=== PATIENT | male | born 1945 | race Caucasian/White ===

== ENCOUNTER 2016-04-25 10:00 | Inpatient (IN) | payer MEDICARE, OTHER ==
[~2016-04-25] VITALS: Ht 188 cm; Wt 149.4 kg
--- NOTE | ~2016-04-25 | HP ---
PATIENT'S NAME: JOHNSON NIETO [facility] AGE: 71 Y [address] ROOM: [place] [address] LOCATION: [facility] ADMIT DATE: 05/02/2016 History & Physical DISCHARGE DATE: FAMILY PHYSICIAN: Donavan Plasencia MD ATTENDING PHYSICIAN: Nahum Garcia DATE OF SERVICE: CHIEF COMPLAINT: Back pain, lumbar. 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 Nahum Garcia, spine surgeon, for ongoing chronic low back pain. The patient has undergone successful laminectomy at L4 and TLIF screws at L4-L5, operation per Dr. Garcia, and I am asked to follow him postop for pain management and medical illness. When I see him, he is sitting in a chair, resting quietly. The patient states he has had no nausea or vomiting since surgery, and he is tolerating diet well. MEDICATIONS: 1. Budeprion XL 300 mg 1 every 24 hours. 2. Clonazepam 0.5 mg a day. 3. Lexapro 20 mg a day. 4. Trazodone 100 mg a day. 5. Synthroid 0.075 mg a day. 6. Tramadol 50 mg as needed. ALLERGIES TO MEDICATIONS: No known drug allergies. IMMUNIZATIONS: Appear to be up-to-date. SOCIAL HISTORY: Does not smoke. FAMILY HISTORY: Negative for problems with bleeding disorder or reaction anesthetic. PREVIOUS OPERATIONS: Bilateral cataracts removed, skin cancer removed, bilateral shoulder arthroscopy, previous left knee arthroscopy, prostatectomy, carpal tunnel PATIENT'S NAME: JOHNSON NIETO [facility] AGE: 71 Y [address] ROOM: [place] [address] LOCATION: [facility] ADMIT DATE: 05/02/2016 History & Physical DISCHARGE DATE: FAMILY PHYSICIAN: Donavan Plasencia MD ATTENDING PHYSICIAN: Nahum Garcia release bilateral, and left elbow ulnar nerve transposition. REVIEW OF SYSTEMS: Positive for hypothyroidism, gastroesophageal reflux, prostate cancer, obstructive sleep apnea, generalized osteoarthritis, posttraumatic stress disorder, and exogenous obesity and hypothyroidism, on replacement. PHYSICAL EXAMINATION: VITAL SIGNS: Per nurse's notes. He is alert, sitting in a chair. Hard of hearing. HEENT: Benign. His nose is clear. TMs normal. Posterior pharynx clear. NECK: Unremarkable. LUNGS: Clear. HEART: Shows no murmur, gallop, or rub. ABDOMEN: Soft without point tenderness or mass. He is obese. PELVIC AND RECTAL: Not done. EXTREMITIES: Unremarkable. I did not check the incision on his back. ASSESSMENT: 1. Chronic low back pain. 2. Status post surgery at L4, described per Dr. Garcia. 3. Exogenous obesity. 4. Posttraumatic stress disorder. 5. Generalized osteoarthritis. 6. Obstructive sleep apnea. 7. History of prostate cancer. 8. Hypothyroid replacement. 9. Gastroesophageal reflux. 10. History of cancer of the face. 11. Status post bilateral cataract excision. 12. Status post bilateral shoulder arthroscopies. 13. Status post left knee arthroscopy. 14. Status post prostatectomy. 15. Status post bilateral carpal tunnel release. 16. Status post elbow ulnar nerve transposition. PLAN: Follow daily. STEPHANIE TAPIA MD PLANT OPERATOR/SHIFT SUPERVISOR/modl PATIENT'S NAME: JOHNSON NIETO [facility] AGE: 71 Y [address] ROOM: [place] [address] LOCATION: [facility] ADMIT DATE: 05/02/2016 History & Physical DISCHARGE DATE: FAMILY PHYSICIAN: Donavan Plasencia MD ATTENDING PHYSICIAN: Nahum Garcia /[id number] D: T: 741 HISTORY & PHYSICAL
--- NOTE | ~2016-04-25 | OR ---
PATIENT'S NAME: JOHNSON NIETO [facility] AGE: 71 Y [address] ROOM: [place] [address] LOCATION: [facility] ADMIT DATE: 05/02/2016 OR/Procedure Report DISCHARGE DATE: FAMILY PHYSICIAN: Donavan Plasencia MD ATTENDING PHYSICIAN: Nahum Garcia SURGEON: Nahum Garcia MD DIESEL DINKEY ENGINEER: DATE OF PROCEDURE: 05/02/2016 PREOPERATIVE DIAGNOSES: 1. Lumbar degenerative disk disease. 2. Lumbar spondylolisthesis. 3. Lumbar stenosis. 4. Lumbar neurogenic claudication. 5. Low back pain. 6. Obesity. POSTOPERATIVE DIAGNOSES: 1. Lumbar degenerative disk disease. 2. Lumbar spondylolisthesis. 3. Lumbar stenosis. 4. Lumbar neurogenic claudication. 5. Low back pain. 6. Obesity. PROCEDURES PERFORMED: 1. Lumbar laminectomy of L4 with decompression of the L4-5 interspace. 2. Lumbar fusion of L4-5 interspace including transforaminal lumbar interbody fusion plus posterolateral fusion of L4-5. 3. Application of spinal prosthetic cage, L4-5 interspace. 4. Application of pedicle screw instrumentation, nonsegmental, L4-5, bilateral. NATIONAL PARK RANGER: CONCETTA Tomas ANESTHESIA: General. ESTIMATED BLOOD LOSS: 400 mL. COMPLICATIONS: None. SPECIMENS: None. FINDINGS: Severe degenerative disease with severe recess stenosis at L4-5 with marked facet hypertrophy. PATIENT'S NAME: JOHNSON NIETO [facility] AGE: 71 Y [address] ROOM: [place] [address] LOCATION: [facility] ADMIT DATE: 05/02/2016 OR/Procedure Report DISCHARGE DATE: FAMILY PHYSICIAN: Donavan Plasencia MD ATTENDING PHYSICIAN: Nahum Garcia INSTRUMENTATION USED: Globus [place] pedicle screws and caliber cage. OPERATIVE INDICATIONS: The patient is a 71-year-old male whom I have followed for symptomatic lumbar degenerative disk disease with spondylolisthesis, spinal stenosis, and neurogenic claudication. He had failed conservative treatment. He was offered surgery in the form of a lumbar decompressive operation with stabilization of his instability. After details, risks, benefits, and options were explained, he freely consented to surgery. OPERATIVE NARRATIVE: After the patient was correctly identified and operative site initialed, he was taken back to the operating room and placed in the supine position. After general anesthesia was induced, he was placed in the prone position with all bony prominences well padded and protected. The back was prepped and draped in the usual sterile fashion. A time-out was taken to verify the patient and the procedure. He received IV antibiotics prior to surgery. 10 mL of 0.25% Marcaine with epinephrine was injected in line with the incision. A 10 blade was used to make a midline incision over the operative levels. Dissection was taken down through the skin and subcutaneous tissue. The fascia was opened in the midline. Subperiosteal dissection was performed to expose the posterior elements. Kerrison was placed on the lamina and verified at the L4-5 level. Transverse processes were exposed at L4 and L5. Self-retaining retractors were placed in the wound. Leksell was used to remove the spinous process and thin the lamina at L4. A combination of high- speed bur under irrigation, Kerrison, and a Leksell rongeur were used to complete the laminectomy. The facets were resected bilaterally. The right- sided facet was completely resected for decompression of the severe recess stenosis. It was also for access to the disk space for the interbody fusion. After decompression was complete, gentle medial retraction on the dura allowed identification of the disk space on the right side. The disk was incised and debrided using pituitaries, curettes, and disk space clayton. After the disk space was adequately prepared, it was packed with BMP and local harvested bone graft. The cage selected was packed with the same bone graft material and impacted in position. It was expanded to its torque-limiting height. The O- arm reference clamp was attached to the L3 spinous process, and the O-arm was brought in for navigation scan. Under stealth navigation, pedicles were localized at L4 and L5. Pedicle screws were placed, and all had excellent purchase. Confirmation of the pedicle screw placement was verified on the scan. Rods were reduced to the screws. Set caps placed and tightened to the appropriate torque. A high-speed bur was used to decorticate the left-sided transverse processes of L4 and L5, and the remaining bone graft and bone graft superintendent nonselling was packed in the lateral gutter for the posterolateral fusion. The wound was irrigated and dried. There was no bleeding. DuraSeal was injected over the disk space to isolate from the spinal canal. 1 g of vancomycin powder was divided between the superficial and deep tissues. The fascia was PATIENT'S NAME: JOHNSON NIETO [facility] AGE: 71 Y [address] ROOM: [address] [address] LOCATION: [facility] ADMIT DATE: 05/02/2016 OR/Procedure Report DISCHARGE DATE: FAMILY PHYSICIAN: Donavan Plasencia MD ATTENDING PHYSICIAN: Nahum Garcia closed with interrupted #1 Vicryl suture, 0 Vicryl on the subcutaneous tissue, and juan on the skin. Sterile dressing was applied, and the patient was awakened from anesthesia and taken to the recovery room in stable condition. A instructor adjunct surgical technician was necessary during this procedure for evacuation of blood during decompression, assistance with placement of the TLIF cage for fusion, and placement of the pedicle screw fixation for stabilization. The patient's morbid obesity made surgical exposure and performance of his fusion operation markedly more difficult than a standard patient. MD MOE PARTIDA/marthal /[id number] d: 05/02/16 1759 t: 05/03/16 1420, OPERATIVE SUMMARY
--- NOTE | ~2016-04-25 | PN ---
PATIENT'S NAME: JOHNSON NIETO [facility] AGE: 71 Y [address] ROOM: [id number] [place], [place] [address] [place] [facility] [place] DATE: 05/02/2016 [facility] Progress Notes DISCHARGE DATE: FAMILY PHYSICIAN: Donavan Plasencia MD ATTENDING PHYSICIAN: Nahum Garcia DATE OF SERVICE: 05/07/2016 CLINICAL UPDATE: The patient has had a lingering low back pain, anxiety, stress, and posttraumatic symptoms overnight. He is followed by the orthopedic surgeon, Dr. Garcia, who did his operation of his back. The attempt today will be to try to get him out to a local senior living closer to home where he would be near his family. From the spine workup and urologic workup, we found no other cause for his back pain including kidney stone. His urine culture came back negative. I had seen him today. He says he is "scared." He thinks this is because of the pain. PHYSICAL EXAMINATION: VITAL SIGNS: Noted. HEENT: Benign. He is hard of hearing. NECK: Unremarkable. LUNGS: Clear. ABDOMEN: Soft, he is neurologically intact. IMPRESSION: 1. Low back pain. 2. Status post lumbar surgery. 3. Posttraumatic stress disorder. 4. No rodney sign of renal lithiasis or urinary tract infection. 5. Exogenous obesity. PLAN: Per the orthopedic surgeons and urologist. Suspect he goes to a local senior living today or tomorrow. STEPHANIE TAPIA MD MAGAZINE HAND/modl PATIENT'S NAME: JOHNSON NIETO [facility] AGE: 71 Y [address] ROOM: [address] [place], [place] [address] [place] [facility] [place]: 05/02/2016 [facility] Progress Notes DISCHARGE DATE: FAMILY PHYSICIAN: Donavan Plasencia MD ATTENDING PHYSICIAN: Nahum Garcia /[id number] d: 05/07/16828 t: 05/14/16 1832, PROGRESS NOTES
--- NOTE | ~2016-04-25 | DS ---
PATIENT'S NAME: JOHNSON NIETO [facility] AGE: 71 Y [address] ROOM: [address] [address] LOCATION: [facility] ADMIT DATE: 05/02/2016 Discharge Summary DISCHARGE DATE: 05/08/2016 FAMILY PHYSICIAN: Donavan Plasencia MD ATTENDING PHYSICIAN: Ba Garcia ADMIT DIAGNOSES: 1. Lumbar spinal stenosis. 2. Lumbar spondylolisthesis. 3. Lumbar degenerative disk disease. 4. Lumbar radiculopathy. 5. Sleep apnea. 6. Depression. DISCHARGE DIAGNOSES: 1. Lumbar spinal stenosis. 2. Lumbar spondylolisthesis. 3. Lumbar degenerative disk disease. 4. Lumbar radiculopathy. 5. Sleep apnea. 6. Depression. 7. Urinary retention. 8. Postoperative delirium. PROCEDURE PERFORMED: Lumbar laminectomy and fusion at L4-5 with TLIF, cage, and posterior pedicle screw instrumentation with posterolateral fusion. HISTORY OF PRESENT ILLNESS: Mr. Nieto is a 71-year-old male who has been followed for low back pain, lumbar radiculopathy, and has failed conservative treatment measures. At which point, surgical treatment options were discussed with the patient. He consented to proceed with surgery. He underwent the above-stated procedure on 05/02/2016. HOSPITAL COURSE: The patient was admitted through same-day surgery underwent lumbar spine operation, was recovered in PACU, and transferred to [address] [place] [address] in stable condition. On postop day 1, the patient's Zambrano catheter was removed, he was up ambulating with one person assist. He was on IV pain medication and was transitioned to oral pain medication. Hemoglobin and hematocrit were stable. He did not require blood transfusion. On postop day 2, the patient's pain escalated significantly. He was placed back on IV pain medication. He underwent ultrasound of his abdomen, which was negative. X-rays of the lumbar spine were negative and stable. His Zambrano catheter was replaced as he had urinary retention. He was not mobilizing. From this day forward, he slowly started to gradually show improvement, but still by the time of discharge, he was at least a one person assist. He was eventually transitioned to oral pain PATIENT'S NAME: JOHNSON NIETO [facility] AGE: 71 Y [address] ROOM: [facility] [place], [place] [address] LOCATION: [facility] [place] ADMIT DATE: 05/02/2016 Discharge Summary DISCHARGE DATE: 05/08/2016 FAMILY PHYSICIAN: Donavan Plasencia MD ATTENDING PHYSICIAN: Ba Garcia medication with fairly adequate pain control. He was having some symptoms consistent with postop delirium, which were gradually improving. His Zambrano catheter was eventually removed on postop day 5 and was voiding without difficulty. He was passing gas. He was afebrile and vital signs were stable throughout his hospital course. He was eventually then transferred to a senior living facility in [facility]. DISCHARGE COURSE: The patient is discharged to a senior living facility on 05/08/2016. He is in stable condition. He was one person assist. He is discharged with oral pain medication and muscle relaxer. He was reminded of postoperative restrictions, use of his brace, and care for his incision and dressing. He is to follow up with Dr. Garcia in approximately 10 days. CONCETTA ALFREDO FOR BA GARCIA MD JTF/modl /[id number] d: 05/16/16 0752 t: 05/24/16 1143, DISCHARGE SUMMARY
[2016-04-25] MEDS ORDERED: LEVOTHROID(SYN75 MCG PO (10:14)
[2016-04-25] MEDS ORDERED: KLONOPIN0.5 MG PO (10:15)
[2016-04-25] MEDS ORDERED: WELLBUTRIN XL300 M1 PO (10:15)
[2016-04-25] MEDS ORDERED: DESYREL100 MG PO (10:15)
[2016-04-25] MEDS ORDERED: LEXAPRO20 MG PO (10:15)
[2016-04-25] MEDS ORDERED: ZYLOPRIM100 MG PO (10:16)
[2016-04-25] MEDS ORDERED: CPAP INH (10:17)
[2016-04-25] MEDS ORDERED: ULTRAM50 MG PO (10:17)
--- NOTE | 2016-05-02 18:50 | NUR ---
Significant Event: Alert & oriented, [place]. CSM intact. Morphine EDI PROGRAMMER. VSS, afebrile, on 1 L O2 and CPAP at night. IV to L) and R) hands. Zambrano. Tolerating regular diet. Patient prefers to wear back brace when in bed/chair. 2 assist with transfers. Pleasant & cooperative with cares.
--- NOTE | 2016-05-03 03:59 | NUR ---
Significant Event: Dressing has moderate drainage. CSM WNL. 1-2 assist with transfers. Back brace on when up. Morphine CRIB TENDER. On 1 L of oxygen nasal cannula. Family at bedside. Zambrano catheter. CPAP at night. When got up to go to bed, patient was dizzy, but is better now. Follow up:
[2016-05-03 05:45] LABS: BASOPHIL % 0.2 %; HEMATOCRIT 38.2 % (37.0-53.0); IMMATURE GRANULOCYTE # 0.1 K/uL (0.0-0.3); IMMATURE GRANULOCYTE % 0.4 %; LYMPHOCYTE # 2.3 K/uL (0.8-4.0); LYMPHOCYTE % 12.3 %; MCH 27.6 pg (27.0-34.0); MCHC 31.4 gm/dL (32.0-36.5); MCV 87.8 fl (83.0-98.0); MONOCYTE # 2.4 K/uL (0.0-1.0); MONOCYTE % 12.7 %; MPV 10.1 fl (9.4-12.4); NEUTROPHIL % 74.4 %; NRBC % 0 /100WBC (0-0.00); PLATELET COUNT 264 K/uL (150-450); RBC 4.35 M/uL (3.50-5.50); RDW-CV 14.2 % (11.9-14.6)
[2016-05-03 05:46] LABS: WBC 18.9 K/uL (4.0-11.0)
--- NOTE | 2016-05-03 12:30 | NUR ---
SPOKE TO PATIENT AND ONE OF HIS SONS AT THE BEDSIDE. INTRODUCED CM AND OUR ROLE. PATIENT LIVES ALONE IN OWN HOME. HE IS PLANNING ON RETURNING THERE ONCE HE IS READY FOR DISCHARGE WITH HELP FROM HIS SON WHO IS AT THE BEDSIDE. HE HAS SHOWER CHAIR, HIGH TIOLET AND HIS SON IS WORKING ON GETTING FRONT WHEELED WALKER. THEY DO NOT ANTICPATE ANY DISCHARGE NEEDS AT THIS TIME. CM WILL CONT OT FOLLOW NEEDED.
--- NOTE | 2016-05-03 16:11 | NUR ---
Significant Event: AMBULATES WITH ASSIST OF 2 USING GAIT BELT AND WALKER WEARING AN LSO BRACE. MORPHINE FRONT COUNTER CLERK AND LINTON CATH DISCONTINUED AT 1100. 2 PERCOCET GIVEN AT 1100, 1 SOMA GIVNE AT 1225 NO RELIEF AN HOUR LATER CALL PLACED TO WITH ORDER RECEIVED FOR TORADOL 15MG IV NOW AND REPEAT IN 8 HOURS AND DILAUDID 0.2-0.4MG IV Q2 HOURS PRN BOTH GIVEN AT APPROX 1330 WITH RELIEF VOICED AT 1430 WHEN PATIENT REQUESTED TO MOVE TO RECLINER THEN RATED PAIN 1/10. ALSO RECEIVED ORDER FOR IV VALIUM WHICH PATIENT REFUSED AT 1500. OXCONTIN 10MG PO BID ORDERED WITH INITIAL DOSE ORDERED FOR 1600. PLEASANT AND COOPERATIVE WITH CARES. Follow up:
--- NOTE | 2016-05-04 05:21 | NUR ---
Significant Event: Pain issues at the beginning of the shift, but better now. Patient unable to void. Zambrano catheter placed. Percocet last at 035. Ultram and Soma at 0037. Dilaudid IV at 0003. Valium IV at 1911. Toradol at 2109. Oxycotin at 2110. Dressing has large drainage. CSM WNL. Patient states that he thinks he has a kidney stone. called and will do a KUB this AM. Follow up:
[2016-05-04 07:50] LABS: BASOPHIL # 0.1 K/uL (0.0-0.2); BASOPHIL % 0.3 %; EOSINOPHIL # 0.1 K/uL (0.0-0.5); EOSINOPHIL % 0.7 %; HEMATOCRIT 39.9 % (37.0-53.0); HEMOGLOBIN 12.7 g/dL (11.0-16.0); IMMATURE GRANULOCYTE # 0.1 K/uL (0.0-0.3); IMMATURE GRANULOCYTE % 0.5 %; LYMPHOCYTE # 1.5 K/uL (0.8-4.0); LYMPHOCYTE % 8.7 %; MCH 27.3 pg (27.0-34.0); MCHC 31.8 gm/dL (32.0-36.5); MCV 85.8 fl (83.0-98.0); MONOCYTE # 2.1 K/uL (0.0-1.0); MONOCYTE % 12.8 %; MPV 9.9 fl (9.4-12.4); NEUTROPHIL # (ANC) 12.9 K/uL (1.4-9.0); NRBC % 0 /100WBC (0-0.00); RBC 4.65 M/uL (3.50-5.50); RDW-CV 14.1 % (11.9-14.6)
[2016-05-04 07:51] LABS: PLATELET COUNT 181 K/uL (150-450); WBC 16.7 K/uL (4.0-11.0)
[2016-05-04 10:12] LABS: BILIRUBIN URINE NEGATIVE (NEGATIVE); BLOOD URINE 250 /UL (NEGATIVE); COLOR URINE YELLOW (YELLOW); GLUCOSE URINE NEGATIVE (NEGATIVE); KETONE URINE 150 mg/dL (NEGATIVE); LEUKOCYTES URINE 500 /UL (NEGATIVE); NITRITE URINE NEGATIVE (NEGATIVE); PROTEIN URINE 30 mg/dL (NEGATIVE); TURBIDITY URINE CLEAR (CLEAR); UROBILINOGEN URINE NORMAL (NORMAL)
[2016-05-04 10:24] LABS: WBC URINE PACKED FIELD #/HPF (NEGATIVE)
[2016-05-04 10:26] LABS: BACTERIA URINE MANY (NEGATIVE); MUCUS URINE 1+ (NEGATIVE)
[2016-05-04 10:28] LABS: HYALINE CAST URINE 0-2 #/LPF (NEGATIVE)
--- NOTE | 2016-05-04 13:26 | NUR ---
Significant Event: PT ALERT AND ORIENTED BUT SLEEPY AT TIMES FROM IV MEDS. PT HAD INCREASED PAIN THIS MORNING AND STATES HE THINKS HE HAS A KIDNEY STONE. DR TAPIA NOTIFIED AND CT SCAN ORDERED. PT REFUSED THE CT WHEN HE GOT DOWNSTAIRS DUE TO HE COULDNT LAY ON HIS BACK SO NOT COMPLETED. UROLOGY CONSULT ORDERED AFTER PT REFUSAL. PT UP IN THE RECLINER THIS AFTERNOON WITH MUCH ENCOURAGEMENT FROM HIS FAMILY BUT HE NOW FEELS A LOT BETTER. LINTON CATH REMAINS INTACT DRAINED 1500 URINE. DRESSING TO LOWER BACK INTACT. PT IS TRYING NOT TO USE HIS STEWARD/STEWARDESS SMOKE ROOM THIS AFTERNOON. SON IN THE ROOM WITH PT. BRACE ON WHEN UP IN THE CHAIR. NO NUMBNESS OF TINGLING. DR MCQUEEN HERE TO SEE PT AND ORDERED AN ULTRA SOUND.
--- NOTE | 2016-05-04 15:36 | NUR ---
pt moved to [facility] and report given to nurse gunter
--- NOTE | 2016-05-04 19:12 | NUR ---
Significant Event: PAIN WELL CONTROLLED WITH PROGRAM DIRECTOR/MORNING SHOW HOST. ATTEMPTED TO AMBULATE SHORT DISTANCE TO BATHROOM WITH 2 ASSIST WITH USE OF WALKER/GAIT BELT, BECAME VERY WEAK AND SHAKEY, SO ASSISTED BACK TO CHAIR. ROYER BATES. BRACE ON. PLEASANT AND COOPERATIVE WITH CARES. TOOK OVER PATIENT CARES AT 1550. Follow up:
--- NOTE | 2016-05-05 04:29 | NUR ---
Patient alert and oriented, can be confused at times, seems to be in pain encouraged to use ROLL FORMER but has not used it, dressing was reinforced had small amount of sanginous drainage leak out of the side of the dressing, transfers are very difficult two to three assist with walker and gaitbelt, csm with in normal limits, very pleasant and cooperative, son at bedside is very helpful
--- NOTE | 2016-05-05 18:53 | NUR ---
PATIENT DOIN WELL TODAY. UP TO CHAIR X 2, AMBULATED TO BR X 2. NO BM. HAD MOM THIS AM AT 09. ROUTINE OXYCONTIN 20 MG AT 0900, PERCOCET LAST AT 1440. TUMS AT 1240 FOR INDIGESTION. SOMA AT 0900 FOR MUSCLE SPASM. LINTON PATENT. VSS. CSM ADEQUATE. BACK DRESSING OLD MARKED DRAINAGE. HAS BACK BRACE FOR WHEN SITTING IN CHAIR. NEEDS ENCOURAGEMENT TO AMBULATE AND SIT UP IN CHAIR.
--- NOTE | 2016-05-06 04:46 | NUR ---
POD#4 PLIF L4-5 W/SCREWS, SPINAL INCISION WITH DSG IN PLACE/MARKED WITH OLD DRAINAGE, UP 2 MAX ASSIST AND UNABLE TO AMBULATE ONLY STAND/PIVOT TO BSC AND BRACE ON WHEN UP. ATTEMPTED SEVERAL TIMES TO WORK AND EDUCATE THE PATIENT ON CORRECT BODY POSITIONING FOR INCREASED COMFORT AND PATIENT REFUSED AND REMAINED ON LEFT SIDE WITH KNEES BENT FOR MOST OF THE NIGHT. PAIN CONTROLLED DURING THIS SHIFT WITH SCHEDULED OXYCONTIN, SOMA LD@2100, AND WILL REASSES FOR PAIN MGT NEEDS FOR PRN PERCOCET BEFORE SHIFT CHANGE. GOOD PO INTAKE/LINTON IN PLACE WITH EXCELLENT URINE OUTPUT, SMALL BM THIS SHIFT. VSS, CPAP QHS WITH 1L O2 FOR SUPPORT. PLAN IS TO DC HOME ON DISCHARGE.
--- NOTE | 2016-05-06 16:18 | NUR ---
Significant Event:.CONFUSED THIS AM. MUCH BETTER THIS AFTERNOON. STATED"HE DOES NOT WANT TO TAKE PERCOCET". TRAMADOL AVAILABLE.ORYER BERMEO'Orion AT 1445 FOR TRIAL VOID. HAS NOT VOID, REPLACE AFTER 6 HRS.HAS BEEN UP AND AMBULATING IN ROOM SEVERAL TIMES. UP IN THE CHAIR AT THIS TIME.SONS HELP PATIENT AT TIMES.BACK BRACE ON WHEN UP. BACK INCISION DRESSING REMAINS C,D,I.PATIENT HAS A BOWEL MOVEMENT THIS SHIFT. Follow up:WILL CONTINUE TO MONITOR PER PLAN OF CARE.
--- NOTE | 2016-05-07 04:43 | NUR ---
SIGNIFICANT EVENT: Patient alert and oriented. Does not want the schedule oxycodone ER and refused all pain meds this shift. Does express pain during ambulation but is more concerned with the side effects - states he hallucinated and doesn't remember most of the night of 05/05. Had one instance of hypertension - tachycardic at times. Other VSS on RA. [place]. Wore CPAP w/1L while sleeping. 3 small loose BM's. Refused HS dose of stool softener. Regular diet. Heavy 2PA walker. Pleasant and cooperative with cares.
--- NOTE | 2016-05-07 11:15 | NUR ---
RECEIVED REFERRAL TO [facility] FOR PATIENT TO GO TO THE [facility] IN [place]. I SPOKE TO PATIENT AND HIS SON AT THE BEDSIDE.THEY CONFIRM TO ME THAT DEANN WOULD LIKE TO GO TO THE SB IN [place] HIS PCP IS KAMAR MAYEN. REFERRAL MADE TO THE [facility] AT [place] I HAD TO LEAVE A MESSAGE ON VOICE MAIL FOR THE BED CORDNATOR TO CONTACT ME.
--- NOTE | 2016-05-07 13:30 | NUR ---
SPOKE TO ESDRAS FENTON AT THE [facility]. SHE REPORTS THAT THEY HAVE A MALE BED AND THEY KNOW JOHNSON WELL. SHE WOULD LIKE FOR ME TO FAX INFO TO HER SHE WILL REVIEW IT WITH THE TEAM AND GET BACK TO ME.
--- NOTE | 2016-05-07 15:00 | NUR ---
RECEIVED CALL FROM JORGE AT THE [facility] SHE REPORTS THAT THEY HAVE A MALE BED FOR JAVIER AND THEY CAN ACCEPT HIM TOMORROW. THE ACCEPTING PHYSICIAN WILL BE DR. Jose Ramon LOZANO HIS CONTACT NUMBER IS ([phone]).I MEET WITH PATIENT AND HIS SON AT THE BEDSIDE. UPDATED THEM THAT JOHNSON HAS BEEN ACCEPTED TO THE SB. THEY ARE HAPPY ABOUT THIS. THEY WOULD LIKE TO LEAVE HERE AT 1000 AM TOMORROW.I NOTIFIED ALTAGRACIA HYLTON WITH DR. PHAM AND GAVE HIM THE CONTACT NUMBER FOR DR. LOZANO. I ALSO NOTIFIED DR. SHER AND INFORMED HIM WELL. PACKET STARETD. AND ORDERS ARE ON THE CHART.
--- NOTE | 2016-05-07 19:31 | NUR ---
Significant Event:Is A/O.SL Lt.wrist.Back drsg is D/I.Still some back pain.Had Tramadol 50mg & again at 1615.Had 2 loose stools today & passing alot of gas.States not much appetite today & "stomach just feels bloated".Has been up amb with 1 & walker with back brace on.Is to go to swing bed in [place] tomorrow at 10:00.Son will transport. Follow up:
--- NOTE | 2016-05-08 03:18 | NUR ---
SIGNIFICANT EVENT: Alert & oriented. Hypertensive (120's to 160 over 70's to 80's), tachycardic (90 to 96) and tachypneic (20) - no fever and mid to upper 90's. CPAP with 1L at HS. Percocet x2 - 2040 and 2345 with noted relief. 1 to 2PA with walker, depending on pain level. PIV is SL. Plan is to DC today to skilled facility in [place], son will transport to [place]. [place] diet. Pleasant and cooperative with cares.
--- NOTE | 2016-05-08 10:00 | NUR ---
SPOKE TO JORGE AT THE [facility] AND UPDATED HER THAT PATIENT WILL BE LEAVING HERE SOON. JORGE REPORTS THAT THEY ARE PLANNING ON PATIENT COMING AND THAT DR. LOZANO HAD RECEIVED CALL FROM ALTAGRACIA PHAM'S PA YESTERDAY AND HAS ACCEPTED THE PATIENT. I FAXED FINAL DISCHARGE ORDERS TO JORGE.
--- NOTE | 2016-05-08 10:15 | NUR ---
Significant Event: PATIENT ALERT AND ORIENTED X3. BACK DRESSING C/D/I. CSM ASSESSMENTS WNL TO BILATERAL UPPER AND LOWER EXTREMITIES. AMBULATES TO BATHROOM AND UP TO CHAIR WITH SBA, USE OF WALKER/GAIT BELT. RATES BACK PAIN 3-2 ON PAIN SCALE, RECEIVED ROUTINE OXYCONTIN AT 0815. BILATERAL KNEE HIGH SANDEE HOSE AND CALF PUMPS ON. TAKING FLUIDS WELL, GOOD APPETITE. LAST BM 05/08/16. VSS, 98.6, 16, 129/66, 87, 93% ON ROOM AIR. USES CPAP AT NIGHT. RECEIVED PERCOCET 1 TAB AT 1022, RATES BACK PAIN 4 ON PAIN SCALE. WEARS BACK BRACE WITH ACTIVITY AND WHEN UP IN CHAIR. FAMILY VERY SUPPORTIVE. Follow up:
--- NOTE | 2016-05-08 12:00 | NUR ---
PATIENT TRANSFER TO [facility] ACCOMPANIED BY SON'S, TRANSFER PACKET SENT. PATIENT ASSISTED TO VEHICLE VIA W/C AND TA ASSISTANCE. SEE TRANSFER NOTE. PNEUMONIA VACCINE GIVEN R) DELTOID.
== END 2016-05-08 12:18 | disposition other institution (70) | DRG 460 ==
LOC: G3N 05-02 05:59 → GMSU 05-04 14:51
PROVIDERS: Family Medicine; ADMIT Orthopaedic Surgery Orthopaedic Surgery of the Spine
PROC: 0SB20ZZ Excision of Lumbar Vertebral Disc, Open Approach (ICD-10-PCS; principal; 2016-05-02)
PROC: 01NB0ZZ Release Lumbar Nerve, Open Approach (ICD-10-PCS; principal; 2016-05-02)
PROC: 0SG00AJ Fusion of Lumbar Vertebral Joint with Interbody Fusion Device, Posterior Approach, Anterior Column, Open Approach (ICD-10-PCS; principal; 2016-05-02)
DX: M48.06 Spinal stenosis, lumbar region (principal); Z68.41 Body mass index [BMI] 40.0-44.9, adult; M43.16 Spondylolisthesis, lumbar region; M51.36 Other intervertebral disc degeneration, lumbar region; I73.9 Peripheral vascular disease, unspecified; M54.5 Low back pain; F43.10 Post-traumatic stress disorder, unspecified; M10.9 Gout, unspecified; E66.01 Morbid (severe) obesity due to excess calories; R33.9 Retention of urine, unspecified; Z87.891 Personal history of nicotine dependence; Z23 Encounter for immunization
CPT/HCPCS: C1713; C1776; G0009; J0131; J0171; J0690; J1100; J1170; J1885; J2001; J2270; J3010; J3360; J3370; J7030; J7040; J7050